=== PATIENT | male | born 1990 | race Caucasian/White ===

== ENCOUNTER 2023-07-01 18:27 | Emergency (ER) | payer BC, OTHER ==
[2023-07-01 18:32] VITALS: BP 140/90; PULSE 80; RESP 18; TEMP 98.1; BMI 26.4
[2023-07-01 20:59] LABS: BASO % 0.5 % (0-2.0); EOS % 3.7 % (0-4.5); HEMATOCRIT 46.5 % (35.4-49); HEMOGLOBIN 15.6 GM/dL (11.7-16.9); LYMPH % 26.9 % (8-40); MCH 28.2 pg (25.7-33.7); MCHC 33.6 g/dl (32.0-35.9); MEAN PLT VOLUME 8.6 fl (7.5-11.1); NEUT % 59.9 % (42.8-82.8); PLATELET COUNT 207 10^3/uL (134-434); RBC 5.54 M/mm3 (4.00-5.60); RDW 14.1 % (11.9-15.9)
[2023-07-01 21:03] LABS: URINE APPEARANCE CLEAR; URINE BILIRUBIN NEGATIVE (NEGATIVE); URINE COLOR YELLOW; URINE GLUCOSE (UA) NEGATIVE (NEGATIVE); URINE KETONE NEGATIVE (NEGATIVE); URINE LEUK ESTERASE NEGATIVE (NEGATIVE); URINE NITRITE NEGATIVE (NEGATIVE); URINE PROTEIN NEGATIVE (NEGATIVE)
[2023-07-01] MEDS: LIDOCAINE 4% PATCH TP ONE (21:03)
[2023-07-01] MEDS: METHOCARBAMOL 500 MG TABLET PO ONE (21:04)
[2023-07-01] MEDS: IBUPROFEN 600 MG TABLET (FP) PO ONE (21:04)
[2023-07-01] MEDS ORDERED: METHOCARBAMOL 500 MG TABLET ONE (21:05)
[2023-07-01] MEDS ORDERED: LIDOCAINE 4% PATCH TP ONE (21:05)
[2023-07-01] MEDS ORDERED: IBUPROFEN 600 MG TABLET (FP) PO ONE (21:05)
[2023-07-01 21:15] LABS: POTASSIUM 3.8 mmol/L (3.5-5.1)
[2023-07-01 21:18] LABS: CALCIUM 9.9 mg/dL (8.5-10.1)
[2023-07-01 21:19] LABS: ALBUMIN 4.6 g/dl (3.4-5.0); BLOOD UREA NITROGEN 13.2 mg/dL (7-18)
[2023-07-01 21:22] LABS: CREATININE 1.2 mg/dL (0.55-1.3)
[2023-07-01 21:23] LABS: BILIRUBIN,TOTAL 0.9 mg/dL (0.2-1); TOT PROT 7.7 g/dl (6.4-8.2)
== END 2023-07-01 21:50 | disposition home or self-care (01) ==
LOC: JERFT 18:27
DX: M54.50 Low back pain, unspecified (principal); R10.9 Unspecified abdominal pain
CPT/HCPCS: 36415; 76775-TC; 80053; 81003; 85025; 87086; 99284-25